=== PATIENT | female | born 1965 | race Caucasian/White ===

== ENCOUNTER → 2017-10-03 | Outpatient (CLI) | payer BC ==
[~2017-10-03] MED LIST: AZIT-1 PO; CALC60SU TP; CIPR-344 PO; CODE118S5 PO; DIAZ-308 PO; ESTR0.62 PO; ESTR1.2525 PO; ETAN25KI5 SQ; HYDR-4309 PO; IBUP200C74 PO; LEV112 PO; MULT-1335 PO; MUPI15CR10 TP; SERT20OR6 PO; ZOLP-360 PO
--- NOTE | 2017-10-04 08:31 | RADIOLOGY IMAGING REPORT ---
FACILITY: [facility] PATIENT NAME: LAMBERTO GIRON : [id number] MR: [id number] V: [id number] EXAM DATE: ORDERING PHYSICIAN: RUDDY VILLALOBOS TECHNOLOGIST: Adelaide Rehman PROCEDURE:BILATERAL DIGITAL SCREENING MAMMOGRAM WITH CAD ASSISTED INTERPRETATION AND 3D BREAST TOMOSYNTHESIS. COMPARISON:Prior mammograms dated 09/11/16, 06/22/15, 06/24/14, 05/26/14, 06/06/12 and 04/24/11. INDICATIONS:SCREENING FINDINGS: Moderately heterogeneous fibroglandular tissue is seen throughout the breasts. The parenchymal pattern has remained stable when allowing for difference in mammographic technique and patient positioning. There is no evidence of malignant appearing mass, malignant appearing calcification or other secondary sign of malignancy in either breast. DIAGNOSTIC CATEGORY 1--NEGATIVE. RECOMMENDATIONS: ROUTINE MAMMOGRAM AND CLINICAL EVALUATION. IMPRESSION: Bi-RADS 1: No significant abnormality is seen. Images were reviewed with R2CAD and 3D breast tomosynthesis. Dictated by: Adamaris Espinoza M.D. on 10/03/2017 at 15:41 Transcribed by: YOSELIN on 10/03/2017 at 19:29 Approved by: Adamaris Espinoza M.D. on 10/04/2017 at 8:30 [facility]
== END ==
LOC: MAMO 01:12
PROVIDERS: ATTEND Obstetrics & Gynecology
DX: Z12.31 Encounter for screening mammogram for malignant neoplasm of breast (principal)
CPT/HCPCS: 77063; 77067

== ENCOUNTER 2018-08-18 09:24 | Emergency (ER) | payer BC ==
[~2018-08-18 09:24] MED LIST changes: -HYDR-4309 PO; +HYDR-653 PO; +SERT-173 PO; -SERT20OR6 PO
--- NOTE | 2018-08-18 09:40 | ER Report ---
History and Physical Time Seen By MD: 09:41 Hx. of Stated Complaint: PATIENT STATES THAT ON SUNDAY SHE WAS IN THE POOL PLAYING WITH GRANDCHILDREN WHEN SHE "MESSED UP HER LOWER BACK"; PT STATES THAT LAST TIME THIS HAPPENED SHE HAD A RUPTURED DISK; PT HAS HAD BACK SURGERY ON BACK BEFORE HPI/ROS CHIEF COMPLAINT: Back pain HISTORY OF PRESENT ILLNESS: Patient is a 53-year-old female who was playing with her grandchildren pulled this weekend. That evening she developed some severe lower back pain with some radiation of pain down the right leg. She's had simil ar symptoms in the past due to herniated disc on the left. She did have back surgery at [facility] in 2016. She denies any saddle anesthesia. She denies any retention or incontinence of urine or stool. Patient is ambulatory. She denies any fevers or chills. She denies any chest pain or shortness of breath. States movement makes pain worse. Rest makes pain better. Back pain is worse than leg pain. REVIEW OF SYSTEMS: Respiratory: No cough, no dyspnea. Cardiovascular: No chest pain, no palpitations. Gastrointestinal: No vomiting, no abdominal pain. Musculoskeletal: Low back pain Allergies: Coded Allergies: No Known Drug Allergies (Unverified , 09/13/13) Home Meds Active Scripts Hydrocodone Bit/Acetaminophen (HYDROCODON-ACETAMINOPHEN 5-325) 1 Each Tablet, 1 EACH PO Q4-6H PRN for PAIN, #12 TAB 0 Refills TAKE ONE TABLET BY MOUTH EVERY 4-6 HOURS NEEDED FOR PAIN Prov:RAINA FELDER MD 08/18/18 Methocarbamol (ROBAXIN-750) 750 Mg Tablet, 1500 MG PO TID for Muscle Relaxant, #30 TAB 0 Refills Prov:RAINA FELDER MD 08/18/18 Reported Medications Etanercept (ENBREL) 25 Mg Vial, SQ WEEKLY, VIAL 07/21/15 Sertraline Hcl (ZOLOFT) 100 Mg Tablet, 1 TAB PO QDAY TAKE ONE TABLET BY MOUTH EVERY DAY 09/13/13 Levothyroxine Sodium (LEVOTHYROXINE SODIUM) 0.112 Mg Tab, 0.112 MG PO QDAY, TAB TAKE ONE TABLET BY MOUTH IN THE MORNING ON AN EMPTY STOMACH AT LEAST 30 MINUTES BEFORE FOOD 09/13/13 Discontinued Reported Medications Estrogens, Conjugated 0.625 Mg Tab (PREMARIN 0.625 MG TAB) 0.625 Mg Tablet, 0.625 MG PO QDAY 07/21/15 Past Medical/Surgical History History of herniated disc Hx Smoking: No Smoking Status: Never Smoker Exposure to Second Hand Smoke?: No Hx Substance Use Disorder: No Hx Alcohol Use: Yes Constitutional Vital Sign - Last 24 Hours 08/18/18 08/18/18 08/18/18 08/18/18 09:24 09:31 09:32 09:54 Temp 97.5 Pulse ??? 61 64 Resp 17 B/P (MAP) 111/68 (82) 111/68 Pulse Ox 94 93 O2 Delivery Room Air 08/18/18 08/18/18 08/18/18 08/18/18 10:00 10:05 10:35 11:00 Pulse 63 63 B/P (MAP) 111/72 (85) 101/64 (76) Pulse Ox 93 96 08/18/18 08/18/18 08/18/18 08/18/18 11:10 11:30 11:40 11:50 Pulse 63 60 B/P (MAP) 97/71 (80) 101/68 (79) Pulse Ox 94 97 Physical Exam General appearance: alert no distress. Back: Thoracic spine has no spinal or paraspinal tenderness to palpation. Lumbar spine has no spinal tenderness moderateparaspinal tenderness Gastroinal: Abdomen is soft, non tender, no masses.. Skin: No lesions and no rashes. Vascular: Normal capillary refill and pulses to feet. Neurological: Motor function: leg strength normal and symmetric for both legs Sensory function: normal for all leg dermatomes. Straight leg raise negative to 70 degrees. Reflexes normal bilaterally on legs. Medical Decision Making EKG/Imaging Imaging FACILITY: [facility] [place] PATIENT NAME: Kaitlin White : 1965 MR: [id number] V: [id number] EXAM DATE: ORDERING PHYSICIAN: RAINA FELDER TECHNOLOGIST: Location: [facility] Patient: Kaitlin White : 1965 Visit/Account:[id number] Date of Sevice: 08/18/2018 Lumbar spine 2 views: HISTORY: Pain after swimming on Sunday. COMPARISON: None. FINDINGS: There are 5 nonrib-bearing lumbar-type vertebral bodies. Disc spaces are well-maintained. Vertebral body height is within normal limits. There is no spondylolisthesis. Facets are in anatomic alignment. No significant facet d egenerative changes. Bony mineralization is normal. IMPRESSION: 1. No evidence of acute osseous abnormality in the lumbar spine. 2. No significant degenerative changes. Report Dictated By: Flores Herbert MD at 08/18/2018 11:34 AM Report E-Signed By: Flores Herbert MD at 08/18/2018 11:36 AM WSN:[id number] ED Course/Re-evaluation ED Course 08/18/2018 10:52:04 am plan at this time will be x-ray of the lumbar spine will also give oral pain medication. Decision to Disposition Date: Aug 18, 2018 Decision to Disposition Time: 11:47 Depart Departure Latest Vital Signs Vital Signs Date Time Temp Pulse Resp B/P (MAP) Pulse Ox O2 Delivery O2 Flow Rate FiO2 08/18/18 11:50 101/68 (79) 08/18/18 11:40 60 97 08/18/18 09:32 97.5 17 Room Air Impression: Primary Impression: Back pain Condition: Improved Disposition: HOME OR SELF-CARE Referrals: LEE COPPOLA MD (PCP) follow up for next routine health exam [facility] call to schedule an evaluation if your symptoms persist after 2 weeks New Scripts Hydrocodone Bit/Acetaminophen (HYDROCODON-ACETAMINOPHEN 5-325) 1 Each Tablet 1 EACH PO Q4-6H PRN for PAIN, #12 TAB 0 Refills TAKE ONE TABLET BY MOUTH EVERY 4-6 HOURS NEEDED FOR PAIN Prov: RAINA FELDER MD 08/18/18 Methocarbamol (ROBAXIN-750) 750 Mg Tablet 1500 MG PO TID for Muscle Relaxant, #30 TAB 0 Refills Prov: RAINA FELDER MD 08/18/18 Departure Forms: ER Transition Record, Medications Reconciliation, Patient Portal Information Patient Instructions: Acute Low Back Pain (ED), Lower Back Exercises (ED) Additional Instructions: If your symptoms persist after 2 weeks you should follow up with [facility] Problem Qualifiers Primary Impression: Back pain Back pain location: low back pain Chronicity: acute Back pain laterality: bilateral Sciatica presence: without sciatica Qualified Codes: M54.5 - Low back pain RAINA FELDER MD Aug 18, 2018 09:40
[2018-08-18] MEDS ORDERED: ORPHENADRINE CITR 100 MG TABSR PO ONE (10:00)
--- NOTE | 2018-08-18 11:40 | RADIOLOGY IMAGING REPORT ---
FACILITY: [facility] - [place], [place] PATIENT NAME: Kaitlin White : 1965 MR: [id number] V: [id number] EXAM DATE: ORDERING PHYSICIAN: RAINA FELDER TECHNOLOGIST: Location: [facility] Patient: Kaitlin White : 1965 Visit/Account:[id number] Date of Sevice: 08/18/2018 Lumbar spine 2 views: HISTORY: Pain after swimming on Sunday. COMPARISON: None. FINDINGS: There are 5 nonrib-bearing lumbar-type vertebral bodies. Disc spaces are well-maintained. V ertebral body height is within normal limits. There is no spondylolisthesis. Facets are in anatomic a lignment. No significant facet degenerative changes. Bony mineralization is normal. IMPRESSION: 1. No evidence of acute osseous abnormality in the lumbar spine. 2. No significant degenerative changes. Report Dictated By: Flores Herbert MD at 08/18/2018 11:34 AM Report E-Signed By: Flores Herbert MD at 08/18/2018 11:36 AM WSN:[id number]
[2018-08-18] MEDS ORDERED: LOR5/325 PO (11:45)
[2018-08-18] MEDS ORDERED: METH-543 PO (11:45)
[2018-08-18 11:50] VITALS: BP 101/68
== END 2018-08-18 11:55 | disposition home or self-care (01) ==
LOC: ER 09:36
DX: M54.5 Low back pain (principal)
CPT/HCPCS: 72100; 99283

== ENCOUNTER 2018-09-10 08:15 | Outpatient (RCR) | payer BC ==
--- NOTE | 2018-09-04 08:56 | PT INITIAL EVALUATION ---
MEDICAL DIAGNOSIS: low back pain RT leg pain TREATMENT DIAGNOSIS: same DATE OF ONSET: 08/16/18 SUBJECTIVE: Kaitlin White presents to physical therapy with complaints of low back pain with radiating pain down her R LE and down into her L hip that started a day after Thanks. She reports that she went swimming with her grandchildren and was twisting and bucking her grandkids off her back without any problems; however, she reports that the next day she states that her low back locked up with resulting pain down her B LE's. She reports that the pain was so severe that it was difficult to travel back from [place] to [place] with shooting pain in her LBP and B LE's. She reports that the pain is worse with sitting, walking, in the am. She reports that the pain is better with lying on her R side and as the day progresses. She reports that she had similar pain two years ago and had a surgical intervention that was successful that abolished her pain for the last two years. She reports that she had an MRI today. She reports increased pain with sneezing. She reports normal bowel and bladder. She denies night pain. She denies any unexplained weight loss. She denies any recent accidents. She reports that it feels better if she sits upright. She reports that her R LE sensation feels different and her R LE is much weaker than her L LE. REHAB PROBLEM LIST: Increased Pain Decreased ROM Decreased Strength Decreased Endurance Decreased Function Decreased ADL's PREVIOUS MEDICAL HISTORY: See EMR OCCUPATION: superintendent of schools in [employer] OBJECTIVE: Posture: She demonstrate normal postural mechanics ROM: Trunk AROM: flexion: NIL with normal end feel. extension: NIl with normal end feel. side gliding R: NIL with normal end feel. side gliding L: minimal restriction with painful end feel. Strength: R hip flexion, abduction, extension, R knee flexion and extension, and R ankle DF and PF: 4/5. L hip flexion, abduction, extension, L knee flexion and extension, and L ankle DF and PF: 5/5 Palpation: TTP: central L4-5 Sensation: L1-S1 on the R decreased as compared to the L side. Special Tests: Repeated extension: pain during the test and centralizing pain following the test with increased L side gliding with a return to normal end feel. Mobility: Independent Gait: She demonstrate normal gait mechanics ASSESSMENT: Kaitlin will benefit from skilled physical therapy to address the listed impairments to improve function and QOL. Her initial classification is posterior derangement that responded well to extension and demonstrate abolished low back pain and abolished radiating pain following the session. As a result, her prognosis is excellent based on the signs and symptoms that were demonstrate throughout the initial examination. Short Term Goals 1 week: Pt will demonstrate centralized low back pain to improve function and QOL. 2 weeks: Pt will demonstrate abolished low back pain to improve function and QOL. 4 weeks: Pt will demonstrate abolished low back pain and return to prior level of function to improve function and QOL. Patient's Goals abolish pain PLAN: Patient to be seen for Manual Therapy/STM/MET Strengthening/condition Range of Motion Spinal Stabilization Work Hardening/Cond Stretching Neuromuscular Re-ed Closed Chain Program Posture/Body mechanics Home Exercise Program Therapeutic Activities 2x/Week for 4 Weeks If you have any questions, comments, or concerns about this report or plan, please contact me at . Thank you, Sandeep Smith, PT, DPT MTDD
[~2018-09-10 08:15] MED LIST changes: +LOR5/325 PO; +METH-543 PO
[2018-09-26] MEDS ORDERED: LEVO-3 PO (16:04)
== END 2018-09-10 18:00 | disposition home or self-care (01) ==
LOC: PT 08:15
PROVIDERS: ATTEND Orthopaedic Surgery
DX: M54.5 Low back pain (principal); M79.604 Pain in right leg
CPT/HCPCS: 97161

== ENCOUNTER → 2018-11-26 | Outpatient (CLI) | payer BC ==
[~2018-11-26] MED LIST changes: +LEVO-3 PO
--- NOTE | 2018-11-27 13:39 | RADIOLOGY IMAGING REPORT ---
FACILITY: [facility] - [place] PATIENT NAME: LAMBERTO GIRON : [id number] MR: [id number] V: [id number] EXAM DATE: ORDERING PHYSICIAN: RUDDY VILLALOBOS TECHNOLOGIST: Adelaide Rehman PROCEDURE:BILATERAL DIGITAL SCREENING MAMMOGRAM WITH CAD ASSISTED INTERPRETATION & 3D TOMOSYNTHESIS COMPARISON:Prior mammograms 10/03/17, 09/11/16, 06/22/15, 06/24/14, 05/26/14. INDICATIONS:screening FINDINGS: The breasts are heterogeneously dense which can obscure small masses. The parenchymal pattern has remained stable allowing for difference in mammographic technique & patient positioning. DIAGNOSTIC CATEGORY 1--NEGATIVE. RECOMMENDATIONS: ROUTINE MAMMOGRAM AND CLINICAL EVALUATION. IMPRESSION: BIRADS 1: Negative. No significant abnormality is seen. Dictated by: Adamaris Espinoza M.D. on 11/26/2018 at 16:48 Transcribed by: DANIELITO on 11/27/2018 at 8:35 Approved by: Adamaris Espinoza M.D. on 11/27/2018 at 13:37 [facility]
== END ==
LOC: MAMO 02:17
PROVIDERS: ATTEND Obstetrics & Gynecology
DX: Z12.31 Encounter for screening mammogram for malignant neoplasm of breast (principal)
CPT/HCPCS: 77063; 77067